=== PATIENT | female | born 1945 | race Hispanic/Latino ===

== ENCOUNTER → 2024-03-26 | Outpatient (CLI) | payer OTHER, MEDICARE ==
[2024-03-26 12:30] LABS: CREATININE 1.3 mg/dL (0.5-1.0); POTASSIUM 5.1 mmol/L (3.5-5.1)
== END | disposition home or self-care (01) ==
LOC: LAB 10:32
PROVIDERS: ATTEND Internal Medicine Cardiovascular Disease
DX: I25.10 Atherosclerotic heart disease of native coronary artery without angina pectoris (principal)
CPT/HCPCS: 36415; 80048

== ENCOUNTER → 2024-04-05 | Outpatient (CLI) | payer OTHER, MEDICARE ==
[~2024-04-05] MED LIST: IOHEXOL 350 MG/ML 100ML INFUS..BTL IV ONE; Solu-medROL 125MG VIAL ONE
== END | disposition home or self-care (01) ==
LOC: RAH 09:56
PROVIDERS: ATTEND Internal Medicine Cardiovascular Disease
DX: I25.10 Atherosclerotic heart disease of native coronary artery without angina pectoris (principal); M47.815 Spondylosis without myelopathy or radiculopathy, thoracolumbar region
CPT/HCPCS: 75574; J2919; Q9967

== ENCOUNTER 2024-08-16 12:48 | Emergency (ER) | payer OTHER, MEDICARE ==
[~2024-08-16] VITALS: Ht 152.4 cm; Wt 72.6 kg
[2024-08-16 13:08] VITALS: BP 108/66; PULSE 65; RESP 20; TEMP 98.2; O2SAT 100
--- NOTE | 2024-08-16 13:11 | ERN ---
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 Patient is complaining of right knee pain, but denies any head injury, or any other associated symptoms at this time. EMS reports patient's daughter was able to catch patient when she was having the syncopal episode and assisted her to the floor. Allergies: Coded Allergies: iodine (Unverified Allergy, Unknown, 08/23/23) Past Medical History Past Medical History: Diabetes-Type II, Hypertension, TIA Surgical History: Other Surgical History Other: ABD SURGERY Review of System Dictation Constitutional: Negative for fever,chills, and weight loss Eyes: Negative for injury, pain,redness, and discharge ENT: Negative for injury,pain or swelling Cardiovascular: Negative for chest pain, palpitations, and edema Respiratory: Negative for shortness of breath, cough, and wheezing, Abdomen/GI: Negative for abdominal pain, nausea, vomiting, diarrhea, and constipation Back: Negative for injury and pain : Negative for injury, bleeding and discharge MS/Extremity: Positive for right knee pain Negative for injury and deformity Skin: Negative for rash, and discoloration Neuro: Positive for syncopal episode Negative for headache, weakness, numbness, tingling, and seizure Psych: Negative for suicide ideation, homicidal ideation, and hallucinations Initial Vital Sign VS Vital Signs Date Time Temp Pulse Resp B/P (MAP) Pulse Ox O2 Delivery O2 Flow Rate FiO2 08/16/24 12:56 97.3 62 10 114/48 100 Room Air 0 08/16/24 13:08 21 Physical Exam Dictation General: awake, alert, NAD Head/Face: Normocephalic, atraumatic Eyes: PERRL, EOMI, vision at baseline ENT: oral cavity clear, TMs clear, no signs of infection Neck: Trachea midline, supple, no nuchal rigidity Cardiovascular: RRR, normal S1/S2, No MRGs, no JVD Respiratory: CTAB, no respiratory distress, No rales or wheezes Abdomen: Soft, non-tender, non-distended, normal bowel sounds, no guarding or rebound. Skin: Warm, dry, normal turgor, no rash MS/Extremity: Pulses equal, no cyanosis, neurovascular intact, FROM Neuro: COAx4, GCS 15, strength 5/5, CN 2-12 intact, normal cerebellar exam, normal gait, Psych: Normal behavior, mood, and affect normal Results (Laboratory/Radiology) Laboratory/Radiology Laboratory Tests Test 08/16/24 13:09 08/16/24 13:58 White Blood Count 7.9 K/uL (4.8-10.8) Red Blood Count 3.50 MIL/uL (4.00-5.50) L Hemoglobin 9.8 g/dL (12.0-16.0) L Hematocrit 32.0 % (36-48) L Mean Corpuscular Volume 91.4 fL (79-99) Mean Corpuscular Hemoglobin 28.0 pg (27.0-33.0) Mean Corpuscular Hemoglobin Concent 30.6 g/dL (32.0-36.0) L Red Cell Distribution Width 13.7 % (11.0-15.5) Platelet Count 238 K/uL (130-400) Mean Platelet Volume 10.8 fL (7.5-10.5) H Immature Granulocyte % (Auto) 0.4 % (0-1) Neutrophils (%) (Auto) 67.1 % (40.0-77.0) Lymphocytes (%) (Auto) 22.3 % (21.0-51.0) Monocytes (%) (Auto) 7.4 % (3.0-13.0) Eosinophils (%) (Auto) 1.9 % (0.0-8.0) Basophils (%) (Auto) 0.9 % (0.0-5.0) Neutrophils # (Auto) 5.3 K/uL (1.8-7.7) Lymphocytes # (Auto) 1.8 K/uL (1.0-4.8) Monocytes # (Auto) 0.6 K/uL (0.1-1.0) Eosinophils # (Auto) 0.15 K/uL (0.00-0.70) Basophils # (Auto) 0.07 K/uL (0.00-0.20) Absolute Immature Granulocyte (auto 0.03 K/uL (0-1) Nucleated Red Blood Cells 0.0 % (0.0-0.19) Red Blood Cell Morphology See comments Sodium Level 143 mmol/L (136-145) Potassium Level 4.6 mmol/L (3.5-5.1) Chloride Level 108 mmol/L (101-111) Carbon Dioxide Level 27 mmol/L (21-32) Blood Urea Nitrogen 20 mg/dL (7-18) H Creatinine 1.2 mg/dL (0.5-1.0) H Glomerular Filtration Rate Calc 47 mL/min (>90) Random Glucose 92 mg/dL (70-105) Total Calcium 9.2 mg/dL (8.5-10.1) Total Bilirubin 0.5 mg/dL (0.2-1.0) Direct Bilirubin 0.2 mg/dL (0.0-0.3) Aspartate Amino Transf (AST/SGOT) 33 U/L (10-37) Alanine Aminotransferase (ALT/SGPT) 39 U/L (12-78) Alkaline Phosphatase 111 U/L (50-136) Total Creatine Kinase 64 U/L (21-232) Troponin I High Sensitivity 9 ng/L (4-50) B-Type Natriuretic Peptide 136 pg/mL (0-100) H Total Protein 6.7 g/dL (6.0-8.3) Albumin 3.4 g/dL (3.5-5.0) L Urine Color YELLOW (YELLOW) Urine Appearance CLEAR (CLEAR) Urine pH 7.5 (5.0-8.0) Urine Specific [place] 1.019 (1.001-1.031) Urine Protein 10 mg/dL (NEGATIVE) H Urine Glucose (UA) NEGATIVE mg/dL (NEGATIVE) Urine Ketones NEGATIVE mg/dL (NEGATIVE) Urine Occult Blood NEGATIVE (NEGATIVE) Urine Nitrate NEGATIVE (NEGATIVE) Urine Bilirubin NEGATIVE mg/dL (NEGATIVE) Urine Urobilinogen 0.2 mg/dL (0.2-1.0) Urine Leukocyte Esterase NEGATIVE [place]/uL Urine RBC 2-5 /HPF (0-1) H Urine WBC 0-1 /HPF (0-1) Urine Squamous Epithelial Cells RARE /HPF (0-2) Urine Bacteria RARE /HPF (None Seen) Urine Hyaline Casts 2-5 /LPF (0-1 /LPF) H Labs Reviewed?: Yes EKG Comment: EKG 08/16/2024 time 1:12 p.m. ventricular rate 66, IN 153, QRS D 87, QT 404. Sinus rhythm, low voltage precordial leads. No STEMI X-RAY Comment: REASON: syncope ORDERING PHYSICIAN: SCAR HERNANDEZ MD PROCEDURE: CXR1VW - CHEST 1VW CHEST 1VW REASON: syncope COMPARISON: None. FINDINGS: Single view of the chest was obtained. Lungs are clear. Heart size is normal. There is no pulmonary vascular congestion. Mediastinum and bony thorax appear unremarkable. IMPRESSION: 1. Normal single view chest x-ray. DICTATED BY: ANA MARIA MUIR MD DATE: 08/16/[address] Scan Comment: REASON: syncope ORDERING PHYSICIAN: SCAR HERNANDEZ MD PROCEDURE: HEAD WO - CT HEAD/BRAIN W/O CONTRAST Exam: NONCONTRAST CT BRAIN REASON: syncope. COMPARISON: None. TECHNIQUE: Images are obtained from vertex to the skull base. The exam was performed without IV contrast. FINDINGS: There is normal appearing brain parenchyma. There are no focal mass lesions. There is is no evidence of intracranial hemorrhage or acute stroke. Ventricles and sulci appear normal. Posterior fossa and brainstem structures are unremarkable. Paranasal sinuses and remaining extracranial soft tissues appear normal as well. IMPRESSION: 1. Normal noncontrast CT brain. CT was performed with one or more following dose reduction techniques: automated exposure control, adjustment of the mA and kv according to patient's size, or use of a iterative reconstruction technique. DICTATED BY: ANA MARIA MUIR MD DATE: 08/16/24 1357 ED Course ED Course Orders Procedure Category Date Status Time 12 Lead Ekg Tracing- EKG 08/16/24 Complete Technical 13:03 B-Type Natriuretic LAB 08/16/24 Complete Peptide 13:03 Basic Metabolic Panel LAB 08/16/24 Complete 13:03 Cbc With Differential LAB 08/16/24 Complete 13:03 Hepatic Function Panel LAB 08/16/24 Complete 13:03 Creatine Kinase, Total LAB 08/16/24 Complete 13:03 Troponin I High LAB 08/16/24 Complete Sensitivity 13:03 Urinalysis Profile LAB 08/16/24 Complete 13:03 Chest 1vw RAD 08/16/24 Resulted 13:03 Ct Head/Brain W/O CT 08/16/24 Resulted Contrast 13:03 Vital Signs Date Time Temp Pulse Resp B/P (MAP) Pulse Ox O2 Delivery O2 Flow Rate FiO2 08/16/24 13:08 98.2 65 20 108/66 100 Room Air* 0 21 08/16/24 12:56 97.3 62 10 114/48 100 Room Air 0 Medical Decision Making MDM MDM: Differential diagnosis: Syncopal episode, electrolyte imbalance Risk of complication and/or morbidity or mortality of patient management: None Medications-Per medication reconciliation Need for hospitalization: Patient does not meet criteria for hospitalization. Need for emergency major/minor surgery: No There are no social concerns with this patient. Prescription drug management Prescriptions will include symptomatic care I independently interpreted the test that were performed, results were reviewed by me and considered findings on radiology if ordered. Medical management and examination interpretation discussions were had by me with other qualified healthcare professionals as indicated for the patient's care. DX & DISP Disposition: Discharge Departure Impression: Primary Impression: Syncope Condition: Stable Referrals: EDIN LI MD (PCP) SCAR HERNANDEZ MD Aug 16, 2024 13:11
[2024-08-16 13:23] LABS: BASOPHILS # (AUTO) 0.07 K/uL (0.00-0.20); BASOPHILS % (AUTO) 0.9 % (0.0-5.0); EOSINOPHILS # (AUTO) 0.15 K/uL (0.00-0.70); EOSINOPHILS % (AUTO) 1.9 % (0.0-8.0); IMMATURE GRANULOCYTE ABSOLUTE 0.03 K/uL (0-1); LYMPHOCYTES # (AUTO) 1.8 K/uL (1.0-4.8); LYMPHOCYTES % (AUTO) 22.3 % (21.0-51.0); MEAN CORPUSCULAR HGB CONC 30.6 g/dL (32.0-36.0); MEAN CORPUSCULAR VOLUME 91.4 fL (79-99); MONOCYTES # (AUTO) 0.6 K/uL (0.1-1.0); MONOCYTES % (AUTO) 7.4 % (3.0-13.0); NEUTROPHILS # (AUTO) 5.3 K/uL (1.8-7.7); NEUTROPHILS % (AUTO) 67.1 % (40.0-77.0); PLATELET COUNT (AUTO) 238 K/uL (130-400); RED CELL DISTRIBUTION WIDTH 13.7 % (11.0-15.5); WHITE BLOOD COUNT (AUTO) 7.9 K/uL (4.8-10.8)
[2024-08-16 13:39] LABS: ALBUMIN 3.4 g/dL (3.5-5.0); BILIRUBIN,DIRECT 0.2 mg/dL (0.0-0.3); BILIRUBIN,TOTAL 0.5 mg/dL (0.2-1.0); CREATININE 1.2 mg/dL (0.5-1.0); POTASSIUM 4.6 mmol/L (3.5-5.1); TOTAL PROTEIN, SERUM 6.7 g/dL (6.0-8.3)
[2024-08-16 13:43] LABS: B-TYPE NATRIURETIC PEPTIDE 136 pg/mL (0-100)
--- NOTE | 2024-08-16 14:01 | HMCIMG ---
Exam: NONCONTRAST CT BRAIN REASON: syncope. COMPARISON: None. TECHNIQUE: Images are obtained from vertex to the skull base. The exam was performed without IV contrast. FINDINGS: There is normal appearing brain parenchyma. There are no focal mass lesions. There is is no evidence of intracranial hemorrhage or acute stroke. Ventricles and sulci appear normal. Posterior fossa and brainstem structures are unremarkable. Paranasal sinuses and remaining extracranial soft tissues appear normal as well. IMPRESSION: 1. Normal noncontrast CT brain. CT was performed with one or more following dose reduction techniques: automated exposure control, adjustment of the mA and kv according to patient's size, or use of a iterative reconstruction technique.
--- NOTE | 2024-08-16 14:13 | EKG ---
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
--- NOTE | 2024-08-16 14:46 | HMCIMG ---
CHEST 1VW REASON: syncope COMPARISON: None. FINDINGS: Single view of the chest was obtained. Lungs are clear. Heart size is normal. There is no pulmonary vascular congestion. Mediastinum and bony thorax appear unremarkable. IMPRESSION: 1. Normal single view chest x-ray.
[2024-08-16 14:53] LABS: APPEARANCE,URINE CLEAR (CLEAR); BILIRUBIN,URINE NEGATIVE (NEGATIVE); COLOR,URINE YELLOW (YELLOW); GLUCOSE, URINE (UA) NEGATIVE (NEGATIVE); KETONES,URINE NEGATIVE (NEGATIVE); LEUKOCYTE ESTERASE ,URINE NEGATIVE Leu/uL (NEGATIVE); NITRATE,URINE NEGATIVE (NEGATIVE); OCCULT BLOOD,URINE NEGATIVE (NEGATIVE); PH,URINE 7.5 (5.0-8.0); PROTEIN,URINE 10 mg/dL (NEGATIVE); UROBILINOGEN,URINE 0.2 mg/dL (0.2-1.0)
[2024-08-16 14:56] LABS: ADD UA MICROSCOPIC YES
[2024-08-16 15:03] LABS: BACTERIA,URINE RARE /HPF (None Seen); MUCUS,URINE RARE LPF (None Seen); SQUAMOUS EPITHELIAL CELL,UR RARE /HPF (0-2); WBC,URINE 0-1 /HPF (0-1)
--- NOTE | 2024-08-16 16:02 | NUR ---
PT STABLE , AAOX4 NO DISTRESS, VITALS WNL NO C/O PAIN NOW. PT TO SEE HER PCP IN 2-3 DAYS , PT WILL MAKE APPOINTMENT, NO NEW RX AT THIS TIME. IV D/C CATHETER INTACT. PT TAKEN OUT IN W/C DRIVEN HOME BY PCP.
== END 2024-08-16 16:03 | disposition home or self-care (01) ==
LOC: EDH 12:48
DX: R55 Syncope and collapse (principal); E11.9 Type 2 diabetes mellitus without complications; I10 Essential (primary) hypertension; Z86.73 Personal history of transient ischemic attack (TIA), and cerebral infarction without residual deficits; Z88.8 Allergy status to other drugs, medicaments and biological substances; Z91.041 Radiographic dye allergy status
CPT/HCPCS: 36415; 70450; 71045; 80048; 80076; 81001; 82550; 83880; 84484; 85025; 93005; 99285

== ENCOUNTER 2024-12-20 05:51 | Day surgery (SDC) | payer OTHER, MEDICAID ==
[2024-12-20] VITALS (10 sets, daily range): BP systolic 76–133; BP diastolic 45–64; PULSE 51–57; RESP 10–17; TEMP 97.4–98.1
[~2024-12-20] VITALS: Ht 152.4 cm; Wt 68.9 kg
[2024-12-20] MEDS ORDERED: ERGO500093 PO (07:02)
[2024-12-20] MEDS ORDERED: ESOM40CA66 PO (07:02)
[2024-12-20] MEDS ORDERED: ISOS30TA92 PO (07:02)
[2024-12-20] MEDS ORDERED: ATOR40TA71 PO (07:02)
[2024-12-20] MEDS ORDERED: AMLO2.5T4 PO (07:02)
[2024-12-20] MEDS ORDERED: FAMO40TA7 PO (07:02)
[2024-12-20] MEDS ORDERED: CLOP75TA32 PO (07:02)
[2024-12-20] MEDS ORDERED: ASPI-1005 PO (07:02)
[2024-12-20] MEDS ORDERED: LISI30TA4 PO (07:02)
[2024-12-20] MEDS ORDERED: LEVO50CA5 PO (07:02)
[2024-12-20] MEDS: 0.9%NACL 1000ML 1,000 ML IV ONE (07:08)
[2024-12-20] MEDS ORDERED: proPOFol 10 MG/ML 20ML VIAL IV ONE (08:01)
--- NOTE | 2024-12-20 09:18 | NUR ---
Full and complete discharge instructions given to Patient and Family both verbally and in writing. Explained GI procedure precautions and follow up. All questions answered. PIV removed with catheter tip intact. Patient voiced understanding to register for repeat procedures tomorow. Clear liquids only today and to repeat Go [place]. Informed Chiara in GI Lab. Home with Family W/C to POV.
== END 2024-12-20 09:10 | disposition home or self-care (01) ==
LOC: DAH 05:51 → ENDO 05:51
PROVIDERS: ATTEND Internal Medicine Gastroenterology
DX: D50.9 Iron deficiency anemia, unspecified (principal); K21.9 Gastro-esophageal reflux disease without esophagitis; F41.9 Anxiety disorder, unspecified; F32.9 Major depressive disorder, single episode, unspecified; I25.10 Atherosclerotic heart disease of native coronary artery without angina pectoris; K59.04 Chronic idiopathic constipation; K43.9 Ventral hernia without obstruction or gangrene; I12.9 Hypertensive chronic kidney disease with stage 1 through stage 4 chronic kidney disease, or unspecified chronic kidney disease; N18.9 Chronic kidney disease, unspecified; M19.90 Unspecified osteoarthritis, unspecified site; E66.01 Morbid (severe) obesity due to excess calories; Z86.73 Personal history of transient ischemic attack (TIA), and cerebral infarction without residual deficits; Z79.899 Other long term (current) drug therapy; Z79.82 Long term (current) use of aspirin; Z90.49 Acquired absence of other specified parts of digestive tract; Z68.26 Body mass index [BMI] 26.0-26.9, adult; Z87.898 Personal history of other specified conditions; Z98.891 History of uterine scar from previous surgery; Z88.8 Allergy status to other drugs, medicaments and biological substances
CPT/HCPCS: 82948; 43235; J7030; J2704; A4620; A4215; A4223; A7002; A4222; A4221; A4663; A4606; J3490

== ENCOUNTER 2024-12-21 05:56 | Day surgery (SDC) | payer OTHER, MEDICAID ==
[2024-12-21] VITALS (11 sets, daily range): BP systolic 111–149; BP diastolic 42–96; PULSE 46–74; RESP 14–18; TEMP 97.4–98.1
[~2024-12-21] VITALS: Ht 152.4 cm; Wt 68.9 kg
[~2024-12-21 05:56] MED LIST changes: +AMLO2.5T4 PO; +ASPI-1005 PO; +ATOR40TA71 PO; +CLOP75TA32 PO; +ERGO500093 PO; +ESOM40CA66 PO; +FAMO40TA7 PO; -IOHEXOL 350 MG/ML 100ML INFUS..BTL IV ONE; +ISOS30TA92 PO; +LEVO50CA5 PO; +LISI30TA4 PO; -Solu-medROL 125MG VIAL ONE
[2024-12-21] MEDS ORDERED: 0.9%NACL 1000ML 1,000 ML IV ONE (06:11)
[2024-12-21] MEDS ORDERED: proPOFol 10 MG/ML 20ML VIAL IV ONE (08:16)
[2024-12-21] MEDS ORDERED: SIMETHICONE 40 MG/0.6 ML ML ONE (08:31)
== END 2024-12-21 09:45 | disposition home or self-care (01) ==
LOC: DAH 05:56 → ENDO 05:56
PROVIDERS: ATTEND Internal Medicine Gastroenterology
DX: D50.9 Iron deficiency anemia, unspecified (principal); K64.0 First degree hemorrhoids; K57.30 Diverticulosis of large intestine without perforation or abscess without bleeding; K44.9 Diaphragmatic hernia without obstruction or gangrene; K31.89 Other diseases of stomach and duodenum; K31.819 Angiodysplasia of stomach and duodenum without bleeding; I10 Essential (primary) hypertension; F32.A Depression, unspecified; M19.90 Unspecified osteoarthritis, unspecified site; E66.9 Obesity, unspecified; K21.9 Gastro-esophageal reflux disease without esophagitis; K59.04 Chronic idiopathic constipation; K43.9 Ventral hernia without obstruction or gangrene; Z86.73 Personal history of transient ischemic attack (TIA), and cerebral infarction without residual deficits; Z88.8 Allergy status to other drugs, medicaments and biological substances; Z90.49 Acquired absence of other specified parts of digestive tract; Z79.899 Other long term (current) drug therapy
CPT/HCPCS: 82948; 43239; 45378; J7030; J2704; A4620; A4215 ×2; A4223; A4222; A4221; A4663; A4606; J3490